=== PATIENT | female | born 1990 | race Caucasian/White ===

== ENCOUNTER 2021-10-03 16:06 | Inpatient (IN) | payer BC ==
[2021-10-03] MEDS ORDERED: Sodium Chloride 0.9% 10 ML Syringe FLUSH PRN (17:14)
[2021-10-03] MEDS ORDERED: Naloxone 0.4 MG/ML SDV ONE (18:28)
[2021-10-03] MEDS ORDERED: Lidocaine 1% 50 ML MDV ONE (18:30)
[2021-10-03] MEDS ORDERED: Witch Hazel Medicated Pads 100/Jar TOP ONE (18:58)
[2021-10-03] MEDS ORDERED: Hydrocortisone 2.5% Crm 30 GM Tube TOP PRN (18:58)
[2021-10-03] MEDS ORDERED: Benzocaine 20% Top Spray 56 GM Bottle TOP ONE (18:58)
[2021-10-03] MEDS ORDERED: Lanolin 100% Cream 40 GM Tube TOP ONE (18:58)
[2021-10-03] MEDS ORDERED: Acetaminophen 325 MG Tab, 50 Tab Bulk Bottle PO PRN (19:27)
[2021-10-03] MEDS ORDERED: Ibuprofen 200 MG Tab, 24 Tab Bulk Bottle PO PRN (19:27)
[2021-10-04] MEDS: Docusate Sodium 100 MG Cap PO PRN (18:41)
[2021-10-05] MEDS: Docusate Sodium 100 MG Cap PO PRN (12:17)
== END 2021-10-05 12:30 | disposition home or self-care (01) | DRG 560 ==
LOC: JP.OBCHECK 16:06 → JP.OB 16:18 → JP.OBCHECK 16:58 → JP.OB 16:58 → OBSVTOIN 18:24 → JP.MS 22:38
PROVIDERS: ADMIT Nurse Practitioner Family; ATTEND Nurse Practitioner Family
PROC: 10E0XZZ Delivery of Products of Conception, External Approach (ICD-10-PCS; principal; 2021-10-03)
PROC: 0W8NXZZ Division of Female Perineum, External Approach (ICD-10-PCS; 2021-10-03)
DX: O24.420 Gestational diabetes mellitus in childbirth, diet controlled (principal); Z3A.38 38 weeks gestation of pregnancy; Z37.0 Single live birth
CPT/HCPCS: 36415; 85025; 99211; A9270-GY; J2001; J2590